=== PATIENT | male | born 1975 | race Two or more races ===

== ENCOUNTER 2024-03-22 12:29 | Emergency (ER) | payer OTHER ==
[~2024-03-22] VITALS: Ht 185.4 cm; Wt 80.0 kg
[2024-03-22 12:31] VITALS: BP 112/71; PULSE 126; RESP 18; TEMP 98.4; O2SAT 99
[2024-03-22] MEDS ORDERED: BECL10.6 INH (13:07)
[2024-03-22] MEDS ORDERED: ALBU90AE INH (13:08)
[2024-03-22] MEDS: DEXAMETHASONE 4MG TABLET PO ONE (13:39)
== END 2024-03-22 13:44 | disposition home or self-care (01) ==
LOC: ER 12:29
DX: J45.901 Unspecified asthma with (acute) exacerbation (principal); Z79.899 Other long term (current) drug therapy
CPT/HCPCS: 99283; J8540